=== PATIENT | male | born 1995 | race Caucasian/White ===

== ENCOUNTER 2016-07-14 09:47 | Emergency (ER) | payer OTHER ==
[~2016-07-14] VITALS: Ht 193 cm; Wt 72.7 kg
[2016-07-14 09:53] VITALS: BP 104/61; PULSE 70; RESP 16; O2SAT 98
--- NOTE | 2016-07-14 10:00 | ED.REPORT ---
HPI-General Illness Date of Service Jul 14, 2016 ED Provider: Don Ferreira MD The patient is a 21 year old male who presents to the emergency department complaining of abdominal pain that began 2 weeks ago. His pain started after he took wild hallucinogenic mushrooms with his friends. His friend picked these mushrooms and the patient is unsure where they came from. After this he developed abdominal pain, nausea and vomiting for 2-3 days. The abdominal cramping has continued since onset and he has also been "gassy." This morning he noticed black stool with some bright red blood. He has noticed some pain with bowel movements. He denies history of hemorrhoids or Crohn's disease. He denies fever, chills or recent vomiting. He does not take any medications on a regular basis. Nursing Notes Stated Complaint: BLOOD IN STOOL Chief Complaint: Male Abdominal Pain Nursing Notes Reviewed: Yes Allergies: Coded Allergies: No Known Allergies (Unverified , 04/22/16) General Time Seen by MD: 09:59 Chief Complaint Abdominal pain, Other (dark/bloody stools) Hx Obtained From: Patient, Other family... (Mother) Arrived By: Walk-in Sudden in Onset?: Yes Onset Occurred: More than a week ago... (2 weeks) Symptom Duration: Since onset Location: : Abdomen Quality: Cramping, Painful Severity: Current: Mild Severity: Maximum: Moderate Recent Healthcare: No recent doctor visit, No recent hospitalization Similar Sx Previous: No Past Medical History Past Medical History Denies Past Surgical History Denies Family History Noncontributory Smoking History Never Smoker Social History Alcohol Use: Denies alcohol use Drug Use: THC Other Social History: Good social support, Local resident Ambulatory Status Independent Review of Systems Full Review of Systems Constitutional: Denies: Chills, Fever GI: Reports: Abdominal pain, Bloody/tarry stool, Nausea, Denies: Diarrhea, Vomiting (not recently) Complete sys rev & neg: except as marked. Physical Exam Vital Signs Vital Signs Date Time Temp Pulse Resp B/P Pulse Ox O2 Delivery O2 Flow Rate FiO2 07/14/16 11:46 36.9 65 16 116/60 98 Room Air 07/14/16 09:53 36.1 70 16 104/61 98 Room Air Initial VS: Reviewed ENT: Mucous membranes moist, Conjunctiva normal, No scleral icterus Neck: Supple, Non-tender, Full range of motion Respiratory: Breath sounds normal, Clear to auscultation, No respiratory distress Cardiovascular: Regular rate & rhythm, Heart sounds normal, Intact distal pulses Lymphatic: No lymphadenopathy Extremities: Vascular intact, Neuro intact, No swelling, No tenderness Neurologic: Alert, Oriented, Nonfocal Psychiatric: Mood/affect normal, Behavior normal, Normal thought content General/Constitutional: Awake, Alert, Cooperative Head / Eyes: Atraumatic, Normocephalic, PERRL, EOMI, No scleral icterus Abdomen: Atraumatic, Soft, No guarding, No rebound, BS normoactive, No distention, No hernia, No palpable mass, No pulsatile mass Tolerates firm palpation to all 4 quadrants. Mild tenderness to his LLQ. Skin: Atraumatic, Color NL, No rash, Warm, Dry Color / Condition: Negative: Jaundice present Rectum / Perineum: No fissures The patient brought a stool sample with him: normal brown stool with a small amount of blood mixed in. On exam: 1 small nonbleeding external hemorrhoid. No palpable internal hemorrhoids. There is scant bright red blood on exam. No melena. Interpretation & Diagnostics Lab Results Interpretation Result Diagram: 07/14/16 1030 07/14/16 1030 Test 07/14/16 10:30 07/14/16 10:40 White Blood Count 5.9th/mm3 (3.8-10.1) Red Blood Count 5.19mil/mm3 (4.40-5.80) Hemoglobin 16.0g/dL (13.8-17.2) Hematocrit 45.3% (41.0-50.0) Mean Corpuscular Volume 87.3fL (81-100) Mean Corpuscular Hemoglobin 30.8pg (27.0-35.0) Mean Corpuscular Hemoglobin Concent 35.3% (32.0-37.0) Red Cell Distribution Width 12.1% (12.3-15.4) Platelet Count 218bil/L (150-400) Neutrophils (%) (Auto) 75.2% (40-74) Lymphocytes (%) (Auto) 16.4% (14-46) Monocytes (%) (Auto) 5.5% (4-12) Eosinophils (%) (Auto) 2.6% (0-5) Basophils (%) (Auto) 0.3% (0-3) Prothrombin Time 10.9sec (8.1-12.5) Prothromb Time International Ratio 1.02ratio Sodium Level 138mEq/L (134-144) Potassium Level 3.9mEq/L (3.5-5.2) Chloride Level 99mEq/L (97-108) Carbon Dioxide Level 25mmol/L (18-29) Blood Urea Nitrogen 7mg/dL (6-20) Creatinine 0.60mg/dL (0.76-1.27) Estimat Glomerular Filtration Rate 183mL/min (>59) Glucose Level 90mg/dL (60-99) Calcium Level 9.6mg/dL (8.5-10.1) Total Bilirubin 1.6mg/dL (0.0-1.2) Aspartate Amino Transf (AST/SGOT) 15U/L (0-50) Alanine Aminotransferase (ALT/SGPT) 7U/L (0-44) Alkaline Phosphatase 82U/L (25-150) Total Protein 7.6g/dL (6.4-8.4) Albumin 5.1g/dL (3.4-5.0) Lipase 27U/L (13-60) Hold Abdi Top Tube Received (Received) Re-Eval/Medical Decision Med Decision/Clinical Course Patient is a generally healthy 21-year-old male who presents to the emergency department with 2 weeks of intermittent crampy lower abdominal pain since eating hallucinogenic mushrooms 2 weeks ago that were harvested by a friend. He does not know what type of mushrooms he consumed. This morning he had bright red blood on the outside of his stool prompting him to come to the emergency department. At this time he is well appearing with benign abdominal examination. Rectal examination reveals an external hemorrhoid without any active bleeding. There are no anal fissures. Rectal examination reveals normal brown stool with scant bright red blood that is quiet positive. He is afebrile and hemodynamically stable. LABS: CBC unremarkable with a stable hct, coags normal, total bilirubin was mildly elevated at 1.6, CMP was otherwise unremarkable, transaminases WNL My primary concern in this situation would be ingestion of hepatotoxic mushrooms resulting in coagulopathy and bleeding. That being said he has no stigmata of liver disease. His total bilirubin is minimally elevated and his LFTs are within normal limits. Moreover his coag studies are within normal limits. He has not had any symptoms suggestive of significant blood loss and his hematocrit is stable. The possibility remains for inflammatory bowel disease or bleeding from colon lesion. That being said he has no family history of inflammatory bowel disease and his abdomen is benign on examination. My suspicion is that he is probably bleeding from an internal hemorrhoid. He has been referred to gastroenterology for further evaluation of the source of his GI bleeding. At this time he is stable and I feel he is appropriate for outpatient workup. Follow-up and return precautions were reviewed with the patient as well as his mother and they verbalized understanding and agreed with the plan. He was discharged in good condition. Source of Hx: Old records, Family Time of Eval: 11:50 Re-Evaluation/Progress Note: Rechecked the patient. Discussed results, diagnosis, and plan for discharge. All questions were addressed. Counseled Regarding: Diagnosis, Lab results, Need for follow-up, When/why to return to ED Discharge & Departure Primary Impression: Bloody stools Additional Impressions: Abdominal cramping Total bilirubin, elevated Hallucinogenic mushrooms use disorder, mild, in sustained remission Disposition: Home Discharge Condition All VS Reviewed: Yes Condition: Stable Additional Instructions: Thank you for seeking care at the emergency room. Our primary goal today in the ED was to evaluate you for any life-threatening conditions. Your labs are stable and your evaluation was reassuring. You should follow-up with your primary doctor in the next week. You should also followup with a cattle sorter. We have given you a referral to Dr. King. Call his office tomorrow to schedule an appointment. You should return to the ED immediately if you develop increased bleeding, severe abdominal pain, fevers, vomiting, bloody emesis, lightheadedness, weakness or any other concerning signs or symptoms. Thank you for letting us partake in your care today. Referrals: Shaji King MD Attestation Portions of this note were transcribed by Susy Arce. I, Dr. Ferreira personally performed the history, physical exam and medical decision-making; I reviewed and confirmed the accuracy of the information in the transcribed note. Signed by: Yue Angel, 07/14/2016 and 1200. copies to: Shaji King MD,Ochoa O MD Jul 14, 2016 10:00 Susy Arce Jul 14, 2016 10:02
[2016-07-14 10:51] LABS: BASOPHILS % (AUTO) 0.3 % (0-3); EOSINOPHILS % (AUTO) 2.6 % (0-5); MONOCYTES % (AUTO) 5.5 % (4-12); Mean Corpuscular Hemoglobin 30.8 pg (27.0-35.0); Mean Corpuscular Volume 87.3 fL (81-100); NEUTROPHILS % (AUTO) 75.2 % (40-74); Platelet Count 218 bil/L (150-400)
[2016-07-14 11:05] LABS: INR 1.02 ratio
[2016-07-14 11:46] VITALS: BP 116/60; PULSE 65; RESP 16; O2SAT 98
== END 2016-07-14 11:54 | disposition home or self-care (01) ==
LOC: SED 09:47
DX: K92.1 Melena (principal); R10.9 Unspecified abdominal pain; E80.7 Disorder of bilirubin metabolism, unspecified; F16.21 Hallucinogen dependence, in remission